=== PATIENT | female | born 1990 | race Caucasian/White ===

== ENCOUNTER 2016-07-05 13:04 | Emergency (ER) | payer MEDICAID ==
[~2016-07-05] VITALS: Ht 172.7 cm; Wt 110.2 kg
[~2016-07-05 13:04] MED LIST: NAPR-576 PO
[2016-07-05 13:24] VITALS: BP 133/85; PULSE 85; RESP 16; TEMP 98.5; O2SAT 98
[2016-07-05] MEDS ORDERED: ZITHTAB PO (14:17)
[2016-07-05] MEDS ORDERED: DEXT1TAB18 PO (14:17)
--- NOTE | 2016-07-05 14:17 | PD ---
HPI Chief Complaint: Cold / Flu Symptoms Time Seen by Provider: 14:06 Travel History International Travel<30 days: No Contact w/Intl Traveler<30days: No Traveled to known affect area: No History of Present Illness HPI 25 year-old woman with 2 weeks worth of cough cold symptoms, productive cough, sore throat, not feeling well generally. No fevers or chills. No nausea or vomiting. Sister was sick with the same. Doesn't smoke. No history of lung disease. No other complaints. History Past Medical History Medical History: Denies Significant Hx LMP: 07/03/16 Social History Alcohol Use: Yes (occasional) Tobacco Use: Yes (stopped in July of 2011) Allergies-Medications (Allergen,Severity, Reaction): Coded Allergies: Penicillin (Verified Allergy, Severe, RASH, 07/05/16) Reported Meds & Prescriptions Reported Meds & Active Scripts Active Naproxen 500 Mg Tab 500 Mg PO Q12HR PRN Review of Systems Except as stated in HPI: all other systems reviewed are Neg Physical Exam Narrative GENERAL: Well-appearing 25 year-old woman, no acute distress. SKIN: Warm and dry. HEAD: Atraumatic. Normocephalic. EYES: Pupils equal and round. No scleral icterus. No injection or drainage. ENT: No nasal bleeding or discharge. Mucous membranes pink and moist. NECK: Trachea midline. No JVD. Mild tender adenopathy. CARDIOVASCULAR: Regular rate and rhythm. No murmur appreciated. RESPIRATORY: No accessory muscle use. Clear to auscultation. Breath sounds equal bilaterally. GASTROINTESTINAL: Abdomen soft, non-tender, nondistended. Hepatic and splenic margins not palpable. MUSCULOSKELETAL: No obvious deformities. No edema. NEUROLOGICAL: Awake and alert. No obvious cranial nerve deficits. Motor grossly within normal limits. Normal speech. Data Data Last Documented VS Vital Signs Date Time Temp Pulse Resp B/P Pulse Ox O2 Delivery O2 Flow Rate FiO2 07/05/16 13:24 98.5 85 16 133/85 98 MDM Medical Decision Making Medical Screen Exam Complete: Yes Emergency Medical Condition: Yes Differential Diagnosis URI, bronchitis, pneumonia, other Narrative Course Medical decision making 25-year-old woman presents to the emergency department with URI symptoms. Looks well. Symptoms ongoing for more than 8 days. Recommend antibiotics, Mucinex DM. Diagnosis Primary Impression: Acute bronchitis Qualified Code: J20.9 - Acute bronchitis, unspecified organism Additional Instructions: Take Mucinex DM is prescribed. If fever develops, or if not improving, take azithromycin as prescribed. Follow-up with your primary doctor in the next 2-4 days. Med/Other Pt SpecificInfo: Prescription(s) given Scripts Azithromycin (Zithromax Z-Mehdi)250 Mg Owrw590 Mg PO DIRECTED #1 DSPK 500 MG (2 tabs) day 1, then 1 tab days 2-5. Prov:Chicho Ortega MD 07/05/16 Dextromethorphan-Guaifenesin ER 12 HR (Mucinex DM Maximum Strength)60-1,200 Mg Tab1 Tab PO BID PRN (CHEST CONGESTION AND/OR COUGH) #14 TAB Prov:Chicho Ortega MD 07/05/16 Disposition: 01 DISCHARGE HOME Condition: Stable Chicho Otrega MD Jul 05, 2016 14:17
== END 2016-07-05 14:46 | disposition home or self-care (01) ==
LOC: PHEFT 13:04
DX: J20.9 Acute bronchitis, unspecified (principal)
CPT/HCPCS: 99283